=== PATIENT | female | born 1995 | race Asian ===

== ENCOUNTER 2018-06-01 10:51 | Emergency (ER) | payer SELFPAY ==
[~2018-06-01] VITALS: Ht 152.4 cm; Wt 49.9 kg
--- NOTE | 2018-06-01 10:52 | NUR ---
ED Nurse Note: patient came in brought in by ambulance [facility], picked up from streets due to screaming and bizarre behavior, patient appears to be delusional, unable to obtain any information from her at this time.
[2018-06-01 11:40] LABS: HEMATOCRIT 39.8 % (37.0-47.0); HEMOGLOBIN 13.3 G/DL (12.0-16.0); MEAN CORPUSCULAR VOLUME 85 FL (80-99); PLATELET COUNT 313 K/UL (150-450); RED BLOOD COUNT 4.68 M/UL (4.20-5.40); RED CELL DISTRIBUTION WIDTH 11.7 % (11.6-14.8); WHITE BLOOD COUNT 17.1 K/UL (4.8-10.8)
[2018-06-01 11:54] LABS: ANION GAP 16 mmol/L (5-15); BLOOD UREA NITROGEN 35 mg/dL (7-18); CALCIUM 9.5 MG/DL (8.5-10.1); CARBON DIOXIDE 22 MMOL/L (21-32); CHLORIDE 105 MMOL/L (98-107); CREATININE 1.1 MG/DL (0.55-1.30); SODIUM 143 MMOL/L (136-145)
[2018-06-01] MEDS ORDERED: Haloperidol 5mg/ml Inj IM ONE (12:00)
[2018-06-01] MEDS ORDERED: LORazepam Inj 2mg/ml 1ml IV ONE (12:00)
[2018-06-01 12:06] LABS: ALANINE AMINOTRANSFERASE 32 U/L (12-78); ALBUMIN 4.8 G/DL (3.4-5.0); ALBUMIN/GLOBULIN RATIO 1.4 (1.0-2.7); ALKALINE PHOSPHATASE 61 U/L (46-116); ASPARTATE AMINO TRANSFERASE 60 U/L (15-37)
[2018-06-01 12:07] VITALS: BP 101/59
[2018-06-01 12:25] LABS: APPEARANCE,URINE CLEAR; BILIRUBIN, URINE NEGATIVE (NEGATIVE); GLUCOSE, URINE (UA) NEGATIVE (NEGATIVE); KETONES,URINE 4+ (NEGATIVE); LEUKOCYTE ESTERASE ,URINE NEGATIVE (NEGATIVE); NITRITE,URINE NEGATIVE (NEGATIVE); PH,URINE 6 (4.5-8.0); PROTEIN,URINE 2+ (NEGATIVE); UROBILINOGEN,URINE NORMAL MG/DL (0.0-1.0)
[2018-06-01 12:29] LABS: COLOR,URINE YELLOW
--- NOTE | 2018-06-01 13:04 | Emergency Room Report ---
History of Present Illness General Chief Complaint: Behavioral Complaint Source: EMS (Tyrese Figueroa DO) Present Illness HPI Patient was brought in by paramedics patient was found in from someone's house yelling and screaming Upon arrival the patient is screaming and what sounds to be possibly Serbian that is reported from the staff Patient agitated and anxious Appears to be acutely psychotic There was no reports of fevers patient denies any nausea or vomiting history from the patient is however limited as she does not answer All other questions Unknown regarding psychiatric history (Tyrese Figueroa DO) Allergies: Coded Allergies: No Known Allergies (Unverified , 06/01/18) Patient History Limited by: medical condition Past Medical History: see triage record Pertinent Family History: unable to obtain Reviewed Nursing Documentation: PMH: Agreed; PSxH: Agreed (Tyrese Figueroa DO) Nursing Documentation-PMH Past Medical History Deferred: Pt Cognitively Impaired (Tyrese Figueroa DO) Review of Systems All Other Systems: limited - Other than the ones mentioned in the history of present illness all others are reviewed however they do stay limited due to the patient's mental status (Tyrese Figueroa DO) Physical Exam Vital Signs Date Time Temp Pulse Resp B/P (MAP) Pulse Ox O2 Delivery O2 Flow Rate FiO2 06/01/18 10:38 97.9 110 16 131/66 95 Room Air Sp02 EP Interpretation: reviewed, normal General Appearance: moderate distress - Yelling and agitated Head: normocephalic, atraumatic Eyes: bilateral eye PERRL, bilateral eye EOMI ENT: hearing grossly normal, normal pharynx, TMs + canals normal, uvula midline Neck: full range of motion, supple, no meningismus, no bony tend Respiratory: lungs clear, normal breath sounds, no rhonchi, no respiratory distress, no retraction, no accessory muscle use Cardiovascular #1: normal peripheral pulses, regular rate, rhythm, no edema, no gallop, no JVD, no murmur Gastrointestinal: normal bowel sounds, non tender, soft, no mass, no organomegaly, non-distended, no guarding, no hernia, no pulsatile mass, no rebound Genitourinary: no CVA tenderness Musculoskeletal: normal inspection Neurologic: responsive, de icer III-XII nml as tested, motor strength/tone normal, sensory intact Psychiatric: mood/affect normal Skin: normal color, no rash, warm/dry, palpation normal Lymphatic: normal inspection, no adenopathy (Tyrese Figueroa DO) Medical Decision Making Diagnostic Impression: Primary Impression: Substance abuse Additional Impressions: Multiple contusions Leukocytosis Qualified Codes: D72.829 - Elevated white blood cell count, unspecified Labs Test 06/01/18 11:20 White Blood Count 17.1 K/UL (4.8-10.8) Red Blood Count 4.68 M/UL (4.20-5.40) Hemoglobin 13.3 G/DL (12.0-16.0) Hematocrit 39.8 % (37.0-47.0) Mean Corpuscular Volume 85 FL (80-99) Mean Corpuscular Hemoglobin 28.3 PG (27.0-31.0) Mean Corpuscular Hemoglobin Concent 33.3 G/DL (32.0-36.0) Red Cell Distribution Width 11.7 % (11.6-14.8) Platelet Count 313 K/UL (150-450) Mean Platelet Volume 6.2 FL (6.5-10.1) Neutrophils (%) (Auto) % (45.0-75.0) Lymphocytes (%) (Auto) % (20.0-45.0) Monocytes (%) (Auto) % (1.0-10.0) Eosinophils (%) (Auto) % (0.0-3.0) Basophils (%) (Auto) % (0.0-2.0) Differential Total Cells Counted 100 Neutrophils % (Manual) 84 % (45-75) Lymphocytes % (Manual) 10 % (20-45) Monocytes % (Manual) 6 % (1-10) Eosinophils % (Manual) 0 % (0-3) Basophils % (Manual) 0 % (0-2) Band Neutrophils 0 % (0-8) Platelet Estimate Adequate Platelet Morphology Normal Red Blood Cell Morphology Normal Urine Color Yellow Urine Appearance Clear Urine pH 6 (4.5-8.0) Urine Specific [place] 1.025 (1.005-1.035) Urine Protein 2+ (NEGATIVE) Urine Glucose (UA) Negative (NEGATIVE) Urine Ketones 4+ (NEGATIVE) Urine Blood Negative (NEGATIVE) Urine Nitrite Negative (NEGATIVE) Urine Bilirubin Negative (NEGATIVE) Urine Urobilinogen Normal MG/DL (0.0-1.0) Urine Leukocyte Esterase Negative (NEGATIVE) Urine RBC 0 /HPF (0 - 2) Urine WBC 0 /HPF (0 - 2) Urine Squamous Epithelial Cells Occasional /LPF Urine Bacteria None /HPF (NONE) Urine HCG, Qualitative Negative (NEGATIVE) Sodium Level 143 MMOL/L (136-145) Potassium Level 4.0 MMOL/L (3.5-5.1) Chloride Level 105 MMOL/L (98-107) Carbon Dioxide Level 22 MMOL/L (21-32) Anion Gap 16 mmol/L (5-15) Blood Urea Nitrogen 35 mg/dL (7-18) Creatinine 1.1 MG/DL (0.55-1.30) Estimat Glomerular Filtration Rate > 60 mL/min (>60) Glucose Level 86 MG/DL (74-106) Calcium Level 9.5 MG/DL (8.5-10.1) Total Bilirubin 1.0 MG/DL (0.2-1.0) Aspartate Amino Transf (AST/SGOT) 60 U/L (15-37) Alanine Aminotransferase (ALT/SGPT) 32 U/L (12-78) Alkaline Phosphatase 61 U/L (46-116) Total Protein 8.2 G/DL (6.4-8.2) Albumin 4.8 G/DL (3.4-5.0) Globulin 3.4 g/dL Albumin/Globulin Ratio 1.4 (1.0-2.7) Salicylates Level 1.7 ug/mL (2.8-20) Urine Opiates Screen Negative (NEGATIVE) Acetaminophen Level < 2 MCG/ML (10-30) Urine Barbiturates Screen Negative (NEGATIVE) Phencyclidine (PCP) Screen Negative (NEGATIVE) Urine Amphetamines Screen Positive (NEGATIVE) Urine Benzodiazepines Screen Positive (NEGATIVE) Urine Cocaine Screen Negative (NEGATIVE) Urine Marijuana (THC) Screen Positive (NEGATIVE) Serum Alcohol < 3 mg/dL (Tyrese Figueroa DO) ER Course Please see above note. Patient reevaluated by me. Follows commands and more awake but still lethargic. She has evidence of multiple contusions mainly involving her knees and right arm. She cannot state how these occurred. She also has some delusional thinking stating that we see people in her. Repeat white count is improved. Patient deemed to be not stable for discharge at this time. Continue IV hydration and repeat evaluation after observation. Patient signed out to Dr. Tsang. Laboratory Tests Test 06/01/18 11:20 06/01/18 14:24 White Blood Count 17.1 K/UL (4.8-10.8) H 13.8 K/UL (4.8-10.8) H Red Blood Count 4.68 M/UL (4.20-5.40) 3.93 M/UL (4.20-5.40) L Hemoglobin 13.3 G/DL (12.0-16.0) 11.1 G/DL (12.0-16.0) L Hematocrit 39.8 % (37.0-47.0) 33.6 % (37.0-47.0) L Mean Corpuscular Volume 85 FL (80-99) 85 FL (80-99) Mean Corpuscular Hemoglobin 28.3 PG (27.0-31.0) 28.2 PG (27.0-31.0) Mean Corpuscular Hemoglobin Concent 33.3 G/DL (32.0-36.0) 33.0 G/DL (32.0-36.0) Red Cell Distribution Width 11.7 % (11.6-14.8) 12.1 % (11.6-14.8) Platelet Count 313 K/UL (150-450) 250 K/UL (150-450) Mean Platelet Volume 6.2 FL (6.5-10.1) L 6.2 FL (6.5-10.1) L Neutrophils (%) (Auto) % (45.0-75.0) 83.2 % (45.0-75.0) H Lymphocytes (%) (Auto) % (20.0-45.0) 9.6 % (20.0-45.0) L Monocytes (%) (Auto) % (1.0-10.0) 6.6 % (1.0-10.0) Eosinophils (%) (Auto) % (0.0-3.0) 0.0 % (0.0-3.0) Basophils (%) (Auto) % (0.0-2.0) 0.6 % (0.0-2.0) Differential Total Cells Counted 100 Neutrophils % (Manual) 84 % (45-75) H Lymphocytes % (Manual) 10 % (20-45) L Monocytes % (Manual) 6 % (1-10) Eosinophils % (Manual) 0 % (0-3) Basophils % (Manual) 0 % (0-2) Band Neutrophils 0 % (0-8) Platelet Estimate Adequate Platelet Morphology Normal Red Blood Cell Morphology Normal Urine Color Yellow Urine Appearance Clear Urine pH 6 (4.5-8.0) Urine Specific [place] 1.025 (1.005-1.035) Urine Protein 2+ (NEGATIVE) H Urine Glucose (UA) Negative (NEGATIVE) Urine Ketones 4+ (NEGATIVE) H Urine Blood Negative (NEGATIVE) Urine Nitrite Negative (NEGATIVE) Urine Bilirubin Negative (NEGATIVE) Urine Urobilinogen Normal MG/DL (0.0-1.0) Urine Leukocyte Esterase Negative (NEGATIVE) Urine RBC 0 /HPF (0 - 2) Urine WBC 0 /HPF (0 - 2) Urine Squamous Epithelial Cells Occasional /LPF Urine Bacteria None /HPF (NONE) Urine HCG, Qualitative Negative (NEGATIVE) Sodium Level 143 MMOL/L (136-145) Potassium Level 4.0 MMOL/L (3.5-5.1) Chloride Level 105 MMOL/L (98-107) Carbon Dioxide Level 22 MMOL/L (21-32) Anion Gap 16 mmol/L (5-15) H Blood Urea Nitrogen 35 mg/dL (7-18) H Creatinine 1.1 MG/DL (0.55-1.30) Estimate Glomerular Filtration Rate > 60 mL/min (>60) Glucose Level 86 MG/DL (74-106) Calcium Level 9.5 MG/DL (8.5-10.1) Total Bilirubin 1.0 MG/DL (0.2-1.0) Aspartate Amino Transferase (AST) 60 U/L (15-37) H Alanine Aminotransferase (ALT) 32 U/L (12-78) Alkaline Phosphatase 61 U/L (46-116) Total Protein 8.2 G/DL (6.4-8.2) Albumin 4.8 G/DL (3.4-5.0) Globulin 3.4 g/dL Albumin/Globulin Ratio 1.4 (1.0-2.7) Salicylates Level 1.7 ug/mL (2.8-20) L Urine Opiates Screen Negative (NEGATIVE) Acetaminophen Level < 2 MCG/ML (10-30) L Urine Barbiturates Screen Negative (NEGATIVE) Phencyclidine (PCP) Screen Negative (NEGATIVE) Urine Amphetamines Screen Positive (NEGATIVE) H Urine Benzodiazepines Screen Positive (NEGATIVE) H Urine Cocaine Screen Negative (NEGATIVE) Urine Marijuana (THC) Screen Positive (NEGATIVE) H Serum Alcohol < 3 mg/dL ([place]o [place] MD) Last Vital Signs Date Time Temp Pulse Resp B/P (MAP) Pulse Ox O2 Delivery O2 Flow Rate FiO2 06/01/18 12:11 106 26 Room Air 06/01/18 12:07 97.9 101/59 100 (Tyrese Figueroa DO) Last Vital Signs Date Time Temp Pulse Resp B/P (MAP) Pulse Ox O2 Delivery O2 Flow Rate FiO2 06/02/18 05:33 97.0 92 16 106/59 100 Room Air Status: improved (Polo [place] MD) Disposition: HOME, SELF-CARE Condition: Improved Referrals: NOT CHOSEN IPA/,REFERRING (PCP) Tyrese Figueroa DO Jun 01, 2018 13:04 [place] MD Jun 02, 2018 03:54
[2018-06-01 13:27] VITALS: BP 95/41
--- NOTE | 2018-06-01 13:28 | NUR ---
ED Nurse Note: Patient sleeping in bed. Regular, unlabored breathing noted.
[2018-06-01 14:00] VITALS: BP 86/41
--- NOTE | 2018-06-01 14:00 | NUR ---
ED Nurse Note: received report from THAI Sidhu and assumed care, pt sleeping in bed, vss, NSR, iv intact and patent, will cont monitor.
--- NOTE | 2018-06-01 14:19 | NUR ---
ED Nurse Note: Low bp notified to ERMD, BP=83/39, BS-80.
[2018-06-01 14:46] LABS: BASOPHILS % (AUTO) 0.6 % (0.0-2.0); HEMATOCRIT 33.6 % (37.0-47.0); HEMOGLOBIN 11.1 G/DL (12.0-16.0); LYMPHOCYTES % (AUTO) 9.6 % (20.0-45.0); MEAN CORPUSCULAR VOLUME 85 FL (80-99); MONOCYTES % (AUTO) 6.6 % (1.0-10.0); NEUTROPHILS % (AUTO) 83.2 % (45.0-75.0); PLATELET COUNT 250 K/UL (150-450); RED BLOOD COUNT 3.93 M/UL (4.20-5.40); RED CELL DISTRIBUTION WIDTH 12.1 % (11.6-14.8); WHITE BLOOD COUNT 13.8 K/UL (4.8-10.8)
--- NOTE | 2018-06-01 15:00 | NUR ---
ED Nurse Note: pt on gambling monitor, nsr, vss, pt arousable to light shake and name, speaks foreign languange, upon asking if pt doesn't speak greek, pt nods. pt nods to her name. will cont monitor.
--- NOTE | 2018-06-01 17:00 | NUR ---
ED Nurse Note: report given to RN Marilee and endorsed care, pt vss, ermd aware pt's condition.
--- NOTE | 2018-06-01 19:11 | NUR ---
ED Nurse Note: Received patient from THAI Hunt. Pt sleeping comfortably. NAD.
--- NOTE | 2018-06-01 19:11 | NUR ---
HAND-OFF: Report given to THAI Benoit.
--- NOTE | 2018-06-01 19:11 | NUR ---
Brice riley in [facility] - 06/01/18 at 1911 by JO HAND-OFF: Report given to
[2018-06-01 19:30] VITALS: BP 106/56
--- NOTE | 2018-06-01 21:00 | NUR ---
ED Nurse Note: pt now AA&ox4, gcs=15, mandarin speaking, spoke with pt via historical interpreter, per historical interpreter statement, pt drank some energy juice three days ago, was home this past week and when she was walking outside, [employer] grabbed her and brought her to hospital, pt unable to recall why she has contusion on her arms and gerhard legs but states she thinks it may have happened when [employer] brought into hospital. Pt currently denies SI/HI/VH/AH, no hx suicidal attempts or ideation, states she has never done any illegal drug use but drink occasionally and smoke cigarette occasionally, NKA, No medical hx. Pt denies going to alliance party or ingesting substances at this time. Per pt's verbal consent, spoke with CHILO pt's family friend and per Chilo's statement, she is international student, denies any medical condition or allergies. will cont monitor. pt vss. pt aware of plan, and advised to notify staff if needed assistance.
--- NOTE | 2018-06-01 21:30 | NUR ---
CHILO [phone]
--- NOTE | 2018-06-02 | NUR ---
ED Nurse Note: Patient sleeping comfortably. NAD. VSS.
--- NOTE | 2018-06-02 02:00 | NUR ---
ED Nurse Note: Pt awake. Provided food and water. NAD. VSS.
[2018-06-02 02:32] VITALS: BP 114/61
--- NOTE | 2018-06-02 05:30 | NUR ---
ED Nurse Note: Patient cleared for discharge per CHARLES. AO4. NAD. VSS. Patient states "I feel better now. I want to go home. My friend, Elisha, will pick me up." Patient given discharge instructions; verbalized understanding. IV and ID band removed. Patient ambulated out with all personal belongings with steady gait.
[2018-06-02 05:33] VITALS: BP 106/59
== END 2018-06-02 05:30 | disposition home or self-care (01) ==
LOC: EDBD 10:51 → EMR 11:30
DX: F19.10 Other psychoactive substance abuse, uncomplicated (principal); S80.02XA Contusion of left knee, initial encounter; S80.01XA Contusion of right knee, initial encounter; S40.021A Contusion of right upper arm, initial encounter; X58.XXXA Exposure to other specified factors, initial encounter; Y92.9 Unspecified place or not applicable; D72.829 Elevated white blood cell count, unspecified
CPT/HCPCS: 36415; 80053; 80307; 81003; 81025; 82962; 85007; 85025; 96361; 96372; 96374; 99284; G0480; J1630; 80329